=== PATIENT | male | born 1955 | race Caucasian/White ===

== ENCOUNTER 2019-02-21 17:42 | Inpatient (IN) | payer MEDICARE, MEDICAID ==
--- NOTE | 2019-02-21 19:38 | ED Physician Chart ---
ED Chief Complaint/HPI - Patient Information Date Seen:: 02/21/19 Time Seen:: 19:50 Chief Complaint:: back pain History of Present Illness:: Been bedridden for last 4 months. He is apparently been more weak than usual. Patient also complaint back pain Allergies:: Allergies Allergy/AdvReac Type Severity Reaction Status Date / Time No Known Allergies Allergy Verified 02/21/19 17:59 Vitals:: Vital Signs - 8 hr 02/21/19 18:00 Temp 98.6 F HR 92 RR 18 BP 160/97 O2 Sat % 96 Historian:: Patient Review:: Transfer documents Reviewed ED Review of Systems - Review of Systems General/Constitutional: No fever, No chills, Weakness Skin: No skin lesions Head: No headache Eyes: No loss of vision ENT: No earache Neck: No neck pain Cardio Vascular: No chest pain, No palpitations Pulmonary: No SOB GI: No nausea, No vomiting, No diarrhea G/U: No dysuria Musculoskeletal: Back pain Endocrine: No polyuria Psychiatric: Prior psych history Hematopoietic: No bruising Allergic/Immuno: No urticaria Neurological: No syncope ED Past Medical History - Past Medical History Past Medical History: HTN, DM, Dyslipidemia, Other (schizophrenia) Family History: Diabetes Melitus, HTN Social History: Non Smoker, No Alcohol Surgical History: other (colonoscopy) Psychiatricy History: Depression, Schizophrenia Family Medical History - Family Member Father History Unknown: Yes ED Physical Exam - Physical Examination General/Constitutional: Well-developed, well-nourished, Alert, No distress Head: Atraumatic Eyes: Lids, conjuctiva normal Skin: Nl inspection, No rash ENMT: External ears, nose nl, TM canals nl, Nasal exam nl Other ENMT comments:: full upper and lower dentures Neck: No nuchal rigidity Respiratory: Nl effort/Exclusion, Clear to Auscultation, No Wheeze/Rhonchi/Rales Cardio Vascular: RRR, No murmur, gallop, rubs, NL S1 S2 GI: No tenderness/rebounding/guarding, No organomegaly : No CVA tenderness Extremities: No tenderness or effusion Neuro/Psych: Alert/oriented, No focal deficits Misc: No paraspinal tenderness ED Labs/Radiology/EKG Results - Lab Results Results: Laboratory Results WBC 8.3 Th/cmm (4.8-10.8) 04/02/19 20: RBC 4.11 Mil/cmm (4.30-5.70) L 02/21/19 20:23 Hgb 13.0 gm/dL (12-16) 02/21/19 20:23 Hct 39.3 % (41.0-60) L 02/21/19 20:23 MCV 95.6 fl (80-99) 02/21/19 20: MCH 31.6 pg (26.0-30.0) H 02/21/19: MCHC Differential 33.1 pg (28.0-36.0) 02/21/19: RDW 13.5 % (11.5-20.0) 02/21/19: Plt Count 300 Th/cmm (150-400) 02/21/19 20: MPV 5.9 fl 02/21/19 20: Neutrophils % 63.6 % (40.0-80.0) 02/21/19: Lymphocytes % 24.2 % (20.0-50.0) 02/21/19: Monocytes % 6.6 % (2.0-10.0) 02/21/19: Eosinophils % 5.1 % (0.0-5.0) H 02/21/19: Basophils % 0.5 % (0.0-2.0) 02/21/19: Laboratory Results WBC 8.3 Th/cmm (4.8-10.8) 02/21/19 20: RBC 4.11 Mil/cmm (4.30-5.70) L 02/21/19 20:23 Hgb 13.0 gm/dL (12-16) 02/21/19 20: Hct 39.3 % (41.0-60) L 02/21/19 20: MCV 95.6 fl (80-99) 02/21/19 20: MCH 31.6 pg (26.0-30.0) H 02/21/19: MCHC Differential 33.1 pg (28.0-36.0) 02/21/19: RDW 13.5 % (11.5-20.0) 04/02/19 20:23 Plt Count 300 Th/cmm (150-400) 02/21/19 20:23 MPV 5.9 fl 02/21/19 20:23 Neutrophils % 63.6 % (40.0-80.0) 02/21/19 20:23 Lymphocytes % 24.2 % (20.0-50.0) 02/21/19 20:23 Monocytes % 6.6 % (2.0-10.0) 02/21/19 20:23 Eosinophils % 5.1 % (0.0-5.0) H 02/21/19 20:23 Basophils % 0.5 % (0.0-2.0) 02/21/19 20:23 Sodium 139 mEq/L (136-145) 02/21/19 20:23 Potassium 3.1 mEq/L (3.5-5.1) L 02/21/19 20:23 Chloride 98 mEq/L (98-107) 02/21/19 20:23 Carbon Dioxide 28.7 mEq/L (21.0-31.0) 02/21/19 20:23 Anion Gap 15.4 (7.0-16.0) 02/21/19 20:23 BUN 20 mg/dL (7-25) 02/21/19 20:23 Creatinine 1.0 mg/dL (0.7-1.3) 02/21/19 20:23 Est GFR ( Amer) > 60.0 ml/min (>90) 02/21/19 20:23 Est GFR (Non-Af Amer) > 60.0 ml/min 02/21/19 20:23 BUN/Creatinine Ratio 20.0 02/21/19 20:23 Glucose 127 mg/dL (70-105) H 02/21/19 20:23 Calcium 10.8 mg/dL (8.6-10.3) H 02/21/19 20:23 ED Septic Shock - . Is Septic Shock (SBP<90, OR Lactate>4 mmol\L) present?: No - <6hrs of presentation: Vital Signs: Vital Signs - 8 hr 02/21/19 18:00 Temp 98.6 F HR 92 RR 18 BP 160/97 O2 Sat % 96 ED Reassessment (Disposition) - Reassessment Reassessment Condition:: Unchanged - Diagnosis Diagnosis:: Hypokalemia; acute exacerbation of back pain - Patient Disposition Admitted to:: Med/Surg Spoke to:: Shlomo Emanuel Admitting Medical Physician:: Shlomo Emanuel Condition at Disposition:: Stable, Unchanged
[2019-02-21 20:37] LABS: % BASOPHILS 0.5 % (0.0-2.0); % EOSINOPHILS 5.1 % (0.0-5.0); % LYMPHOCYTES 24.2 % (20.0-50.0); % MONOCYTES 6.6 % (2.0-10.0); % NEUTROPHILS 63.6 % (40.0-80.0); EOSINOPHILE ABSOLUTE 0.4 Th/cmm (0.1-0.4); HEMATOCRIT 39.3 % (41.0-60); MEAN CELL VOLUME 95.6 fl (80-99); MEAN CORPUSCULAR HEMOGLOBIN 31.6 pg (26.0-30.0); MEAN CORPUSCULAR HGB CONC 33.1 pg (28.0-36.0); MEAN PLATELET VOLUME 5.9 fl; MONOCYTE ABSOLUTE 0.5 Th/cmm (0.3-1.0); NEUTROPHILE ABSOLUTE 5.4 Th/cmm (1.8-8.0); PLATELET COUNT 300 Th/cmm (150-400); RED BLOOD COUNT 4.11 Mil/cmm (4.30-5.70); RED CELL DISTRIBUTION WIDTH 13.5 % (11.5-20.0); WHITE BLOOD COUNT 8.3 Th/cmm (4.8-10.8)
[2019-02-21 20:54] LABS: ANION GAP 15.4 (7.0-16.0); BUN - UREA NITROGEN 20 mg/dL (7-25); CALCIUM SERUM 10.8 mg/dL (8.6-10.3); CARBON DIOXIDE 28.7 mEq/L (21.0-31.0); CHLORIDE 98 mEq/L (98-107); GFR AFRICAN-AMERICAN > 60.0 ml/min (>90); GFR NON AFRICAN-AMERICAN > 60.0 ml/min; GLUCOSE 127 mg/dL (70-105); POTASSIUM SERUM 3.1 mEq/L (3.5-5.1); SODIUM SERUM 139 mEq/L (136-145)
[2019-02-21] MEDS ORDERED: Potassium Chloride 20 mEq ER Tab PO ONE ×2 (21:49→22:04)
[2019-02-21] MEDS ORDERED: INSULIN LISPRO SLIDING SCALE 100 UNITS/ML UNIT SUBQ ONE (23:30)
[2019-02-22 00:36] VITALS: BP 144/102
[2019-02-22] MEDS ORDERED: INSULIN HUMAN REGULAR 100 UNITS/ML UNIT SUBQ ONE (06:00)
[2019-02-22] MEDS ORDERED: INSULIN LISPRO SLIDING SCALE 100 UNITS/ML UNIT SUBQ SCH (06:30)
[2019-02-22] MEDS: INSULIN LISPRO SLIDING SCALE 100 UNITS/ML UNIT SUBQ SCH ×4 (08:24→22:40)
--- NOTE | 2019-02-22 08:41 | Diagnostic Imaging Report ---
Exam: Chest x-ray HISTORY: Cough Findings: Frontal examination of chest reviewed, no prior studies available comparison. The study demonstrates elevation of right hemidiaphragm with distended bowel. The heart is prominent. There is mild congestion. No acute pulmonic infiltrates or effusions appreciated. Bony thorax is intact. Degenerative changes of shoulder joints bilaterally appreciated. IMPRESSION: Cardiomegaly, mild congestion. Elevated right hemidiaphragm. Clinical correlation recommended.
[2019-02-22] MEDS: Pantoprazole 40 mg EC Tab PO SCH (10:48)
[2019-02-22] MEDS ORDERED: buPROPion XL 150 mg T 24 H PO ONE (11:00)
[2019-02-22 11:24] LABS: URINE SOURCE RANDOM
[2019-02-22 11:28] LABS: URINE BILIRUBIN NEGATIVE (NEGATIVE); URINE BLOOD NEGATIVE (NEGATIVE); URINE GLUCOSE (UA) NEGATIVE (NEGATIVE); URINE KETONE NEGATIVE (NEGATIVE); URINE LEUKOCYTE ESTERASE NEGATIVE (NEGATIVE); URINE NITRATE NEGATIVE (NEGATIVE); URINE PH 7.5 (4.6 - 8.0); URINE PROTEIN NEGATIVE (NEGATIVE)
[2019-02-22 11:30] LABS: % BASOPHILS 0.3 % (0.0-2.0); % EOSINOPHILS 3.5 % (0.0-5.0); % LYMPHOCYTES 19.5 % (20.0-50.0); % MONOCYTES 6.7 % (2.0-10.0); EOSINOPHILE ABSOLUTE 0.3 Th/cmm (0.1-0.4); HEMATOCRIT 38.8 % (41.0-60); HEMOGLOBIN 12.6 gm/dL (12-16); LYMPHOCYTE ABSOLUTE 1.4 Th/cmm (1.5-3.0); MEAN CELL VOLUME 94.6 fl (80-99); MEAN CORPUSCULAR HEMOGLOBIN 30.8 pg (26.0-30.0); MEAN CORPUSCULAR HGB CONC 32.5 pg (28.0-36.0); MEAN PLATELET VOLUME 6.1 fl; MONOCYTE ABSOLUTE 0.5 Th/cmm (0.3-1.0); NEUTROPHILE ABSOLUTE 5.1 Th/cmm (1.8-8.0); PLATELET COUNT 298 Th/cmm (150-400); RED CELL DISTRIBUTION WIDTH 13.3 % (11.5-20.0); WHITE BLOOD COUNT 7.3 Th/cmm (4.8-10.8)
[2019-02-22 11:36] LABS: URINE CLARITY CLEAR (CLEAR); URINE COLOR YELLOW
[2019-02-22 11:37] LABS: URINE BACTERIA OCCASIONAL /hpf (NONE SEEN); URINE EPITHELIAL CELLS NONE SEEN /lpf (FEW); URINE MICROSCOPIC INDICATED? YES; URINE RBC NONE SEEN /hpf (0-5); URINE WBC 0-2 /hpf (0-5)
--- NOTE | 2019-02-22 11:48 | History & Physical ---
ADMIT DATE: 02/21/2019 PATIENT IDENTIFICATION: A 63-year-old male. CHIEF COMPLAINT: "Doctor, I cannot walk anymore. I feel generalized weak. I need help." HISTORY OF PRESENT ILLNESS: A 63-year-old male who resides at longterm, has history of diabetes mellitus, hypertension, psychotic distress, history of spinal stenosis, DJD, hypothyroidism, resides at [facility], brought in to the Emergency Room yesterday because the patient was stating that he does not feel good and he feels weak more than usual. The patient was sent to Emergency Room. The patient was evaluated by Emergency Room MD. Upon evaluation, it was noted that the patient had hypokalemia with potassium of 3.1, calcium was reported 10.8 and noted to have significant neurological finding of lower extremity weakness along with upper extremity spasticity as well. The patient was advised to be admitted for further management. PAST MEDICAL HISTORY: Remarkable for, 1. Diabetes. 2. Hypertension. 3. Hyperlipidemia. 4. Hypothyroidism. 5. DJD. 6. Spinal stenosis. 7. Chronic pain. 8. Psychotic disorder. MEDICATIONS AT HOME: Has been reviewed and reconciled appropriately. ALLERGIES: The patient is not allergic to medication. SOCIAL HISTORY: The patient resides in assisted living facility. No history of smoking cigarette, alcohol, or drug use. FAMILY MEDICAL HISTORY: Remarkable for diabetes. REVIEW OF SYSTEMS: The patient complained of generalized weakness with decreased appetite. No fever, no chills, no chest pain, no shortness of breath, no palpitation, no dizziness, no nausea, no vomiting, no diarrhea, no dysuria, no hematuria, no hematochezia or melena. No seizure or syncopal episode. PHYSICAL EXAMINATION: GENERAL: Alert, awake, oriented, lying in the bed. VITAL SIGNS: Temperature 97.6, pulse is 72, respiratory rate is 18, blood pressure 144/100. HEENT: Normocephalic, atraumatic. Extraocular muscles are intact. Tongue was pink and coated. Poor dentition noted. No oral lesion noted. No exudate. NECK: Supple. No JVD. No hepatojugular reflex. No lymphadenopathy, thyromegaly, or carotid bruit. HEART: Both heart sounds are regular. No S3, no S4. CHEST AND LUNGS: Equal in expansion, no expiratory wheezing. ABDOMEN: Soft. No guarding, no rigidity. Liver and spleen are not palpable. No palpable mass. EXTREMITIES: No edema, no cyanosis, no calf tenderness noted. Peripheral pulses +1. NEUROLOGIC: Alert, awake and oriented to time, place, person; 2 through 12 cranial nerves are intact. Power in upper extremity is 4/5 with spasticity also noted, some wasting on the muscles on the hand noted. Lower extremity power is reported 3 or 2/5 to proximal and distal muscles, significant spasticity and foot drop also noted. Unable to bend his knee as well as ankle. AVAILABLE DIAGNOSTIC DATA: Has been reviewed. CLINICAL IMPRESSION: A 63-year-old male with history of diabetes, hypertension, lumbar spinal stenosis, chronic pain syndrome, presented to Emergency Room for, 1. Generalized weakness, not feeling well, noted to have hypokalemia, mild hypercalcemia, has a neurological finding which is new from before since I know him. He does have lower extremity weakness, but this looks worse. The patient needs further evaluation. 2. Diabetes. 3. Hypertension. 4. Chronic pain syndrome. 5. Psychotic disorder. 6. Degenerative joint disease. 7. Debility. 8. Decline in self-care and mobility. PLAN: 1. Admit this patient to Med/Surg floor. 2. Replace potassium. 3. MRI of lumbosacral spine. 4. Neurology consultation. 5. Repeat the labs in order to further workup for hypercalcemia. 6. Follow appropriate home medicine reconciliation. 7. Diabetes management. 8. Follow lab. 9. Follow consult recommendation. 10. Care plan reviewed and discussed with staff. [facility]# [id number]
[2019-02-22 11:49] LABS: ALB/GLOB RATIO 1.7 (1.0-1.8); ALKALINE PHOSPHATASE 41 U/L (34-104); ANION GAP 12.3 (7.0-16.0); BILIRUBIN,TOTAL 0.4 mg/dL (0.3-1.0); BUN - UREA NITROGEN 19 mg/dL (7-25); CALCIUM SERUM 11.2 mg/dL (8.6-10.3); CARBON DIOXIDE 30.2 mEq/L (21.0-31.0); CHLORIDE 99 mEq/L (98-107); GFR AFRICAN-AMERICAN > 60.0 ml/min (>90); GFR NON AFRICAN-AMERICAN > 60.0 ml/min; GLUCOSE 155 mg/dL (70-105); POTASSIUM SERUM 3.5 mEq/L (3.5-5.1); SGOT 15 U/L (13-39); SGPT/ALT 17 U/L (7-52); SODIUM SERUM 138 mEq/L (136-145); TOTAL PROTEIN,SERUM 6.4 gm/dL (6.0-8.3)
[2019-02-22] MEDS ORDERED: Atorvastatin Calcium 10 MG TAB PO SCH (21:00)
[2019-02-22] MEDS ORDERED: Non-Formulary Item 1 EA (Lurasidone Hcl [Latuda] 40 MG) PO SCH (21:00)
[2019-02-22] MEDS: Atorvastatin Calcium 10 MG TAB PO SCH (22:27)
[2019-02-23] MEDS: Levothyroxine 0.025 Mg Tab PO SCH (06:49)
[2019-02-23 07:00] LABS: % BASOPHILS 0.5 % (0.0-2.0); % EOSINOPHILS 4.8 % (0.0-5.0); % LYMPHOCYTES 30.9 % (20.0-50.0); % MONOCYTES 8.3 % (2.0-10.0); % NEUTROPHILS 55.5 % (40.0-80.0); EOSINOPHILE ABSOLUTE 0.4 Th/cmm (0.1-0.4); HEMATOCRIT 35.4 % (41.0-60); HEMOGLOBIN 12.1 gm/dL (12-16); LYMPHOCYTE ABSOLUTE 2.4 Th/cmm (1.5-3.0); MEAN CELL VOLUME 92.9 fl (80-99); MEAN CORPUSCULAR HEMOGLOBIN 31.8 pg (26.0-30.0); MEAN CORPUSCULAR HGB CONC 34.3 pg (28.0-36.0); MEAN PLATELET VOLUME 6.1 fl; MONOCYTE ABSOLUTE 0.6 Th/cmm (0.3-1.0); NEUTROPHILE ABSOLUTE 4.3 Th/cmm (1.8-8.0); PLATELET COUNT 278 Th/cmm (150-400); RED BLOOD COUNT 3.81 Mil/cmm (4.30-5.70); RED CELL DISTRIBUTION WIDTH 13.1 % (11.5-20.0); WHITE BLOOD COUNT 7.7 Th/cmm (4.8-10.8)
[2019-02-23 07:11] LABS: ALB/GLOB RATIO 1.8 (1.0-1.8); ALBUMIN 3.8 gm/dL (4.2-5.5); ALKALINE PHOSPHATASE 36 U/L (34-104); ANION GAP 9.4 (7.0-16.0); BILIRUBIN,TOTAL 0.5 mg/dL (0.3-1.0); BUN - UREA NITROGEN 22 mg/dL (7-25); CALCIUM SERUM 11.3 mg/dL (8.6-10.3); CARBON DIOXIDE 30.8 mEq/L (21.0-31.0); CHLORIDE 101 mEq/L (98-107); GFR AFRICAN-AMERICAN > 60.0 ml/min (>90); GFR NON AFRICAN-AMERICAN > 60.0 ml/min; GLUCOSE 124 mg/dL (70-105); POTASSIUM SERUM 3.2 mEq/L (3.5-5.1); SGOT 13 U/L (13-39); SGPT/ALT 16 U/L (7-52); SODIUM SERUM 138 mEq/L (136-145); TOTAL PROTEIN,SERUM 5.9 gm/dL (6.0-8.3)
[2019-02-23] MEDS: INSULIN LISPRO SLIDING SCALE 100 UNITS/ML UNIT SUBQ SCH ×4 (07:20→21:22)
[2019-02-23] MEDS: Pantoprazole 40 mg EC Tab PO SCH (09:16)
[2019-02-23] MEDS: buPROPion XL 150 mg T 24 H PO SCH (09:20)
[2019-02-23] MEDS ORDERED: Potassium Chloride 20 mEq ER Tab PO ONE (09:32)
[2019-02-23] MEDS ORDERED: Nystatin Cream 100,000 u/gm Cream 15 gm TP SCH (15:00)
[2019-02-23] MEDS: Nystatin Cream 100,000 u/gm Cream 15 gm TP SCH (16:52)
[2019-02-23] MEDS: Atorvastatin Calcium 10 MG TAB PO SCH (21:14)
--- NOTE | 2019-02-23 23:14 | Consultation ---
DATE OF CONSULTATION: 02/23/2019 NEUROLOGY CONSULTATION HISTORY OF PRESENT ILLNESS: A 63-year-old male in the detention. The patient with difficulty with walking. The patient with previous leg weakness. Has been walking for some time. The patient feels also generally weak, exhausted. PAST MEDICAL HISTORY: 1. Lumbar spinal stenosis. 2. The patient with diabetes. 3. Hypertension. 4. Psychosis. 5. Hypothyroidism. 6. Chronic pain syndrome. MEDICATIONS: Per reconciliation. ALLERGIES: None known. SOCIAL HISTORY: In a facility. REVIEW OF SYSTEMS: As above, otherwise 12-point negative. PHYSICAL EXAMINATION: VITAL SIGNS: Temperature 98.2, blood pressure 140/89, and pulse is 76. NECK: Supple, no bruits. HEART: Sounds S1, S2. LUNGS: Clear. NEUROLOGIC: The patient is awake. His speech is very dysarthric and forced. I do not know whether he had previous stroke or not. The patient was able to give me his name, his age. He did not know the date. He knew the month. CRANIAL: Pupils react to light. Full eye movement. MOTOR: Upper extremity increased tone. There is wasting of the hand muscles. Lower extremity strength is reduced, has increased tone. Again, the strength is about probably 3 or 3+. Reflexes are about 1+ to 2 upper extremities, difficulty doing the knees, more close to stiffness. Weakness of the foot bilaterally. The patient's Babinski bilaterally. IMPRESSION: 1. Gait difficulty. Clinically, the patient has myelopathy. We will get an MRI cervical spine. Other etiology needs to be ruled out. The patient should follow up with Neurology as outpatient. 2. The patient with history of lumbar stenosis, though that would not account for many of the symptoms. 3. The patient with dysarthria. I do not know whether this has been there for a long time, but rule out underlying cerebrovascular accident, neurodegenerative disease. 4. The patient's workup here shows a mild hypercalcemia. 5. Diabetes with some neuropathy. 6. Hypothyroidism. 7. Arthritis. PLAN: MRI cervical spine, lab studies. Further workup depending on the progress. JOB# [id number]
--- NOTE | 2019-02-24 00:01 | Progress Notes ---
DATE: IDENTIFICATION: A 63-year-old male. SUBJECTIVE: The patient seen and examined. The patient is lying in the bed. The patient is seen by neurologist. Neurology input was greatly appreciated. The patient has no new complaint. The patient is scheduled to have MRI of C-spine associated with a CT scan of the head. The patient continues to feel weak though. PHYSICAL EXAMINATION: VITAL SIGNS: Temperature 98, pulse is 70, respiratory rate 18, blood pressure 168/100. HEENT: Poor dentition. NECK: Supple, no JVD. HEART: Regular. CHEST: Lung clear. ABDOMEN: Soft. EXTREMITIES: No edema. NEUROLOGIC: Unremarkable for significantly remarkable spasticity of both lower extremities and some foot drop also noted. Wasting of the small muscle also noted. AVAILABLE DIAGNOSTIC DATA: Potassium of 3.2. MRI remarkable for diffuse DJD with partial compression or anteversion involving the body of L1 noted. CLINICAL IMPRESSION: 1. Bilateral lower extremity weakness associated with worsening symptoms of generalized weakness. Workup are currently in progress. Neurology input appreciated. 2. Hypokalemia. 3. Hypertension. 4. Diabetes mellitus. 5. Degenerative joint disease. 6. High risk for fall. PLAN: Recommended at this time, the patient is to have an MRI and CT head as suggested by neurologist. Replace potassium. Continue other medication as prescribed. Follow lab and follow security sales consultant's recommendations. Adjust antihypertensive medications as well. Care plan reviewed and discussed with staff. JOB# [id number]
[2019-02-24] MEDS: Levothyroxine 0.025 Mg Tab PO SCH (06:28)
[2019-02-24] MEDS: INSULIN LISPRO SLIDING SCALE 100 UNITS/ML UNIT SUBQ SCH ×4 (06:30→21:32)
--- NOTE | 2019-02-24 07:58 | Diagnostic Imaging Report ---
CT scan of the brain without intravenous contrast HISTORY: Stroke, CVA Total DLP equals 913 CTDI equals 46.4 Axial sections were obtained from the base of the skull to the vertex. There is prominence/enlargement of the ventricular system size. Associated enlargement of cerebral sulci and subarachnoid cisterns. Findings are consistent with changes of generalized cerebral atrophy. No acute parenchymal abnormalities. No acute cerebral hemorrhage. Hypodensity is seen within the supratentorial white matter regions without mass effect. The findings may be associated with chronic small vessel ischemic disease. No extra-axial masses or abnormal fluid collections. IMPRESSION: 1. No acute abnormalities 2. Cerebral atrophy 3. Supratentorial white matter changes that may reflect chronic small vessel ischemic disease
[2019-02-24] MEDS: Pantoprazole 40 mg EC Tab PO SCH (09:44)
[2019-02-24] MEDS: buPROPion XL 150 mg T 24 H PO SCH (09:45)
[2019-02-24] MEDS: Nystatin Cream 100,000 u/gm Cream 15 gm TP SCH ×2 (09:46→17:52)
[2019-02-24] MEDS: Sodium Chloride 0.9% 1,000 ML IV SCH ×2 (10:40→19:48)
[2019-02-24] MEDS: Atorvastatin Calcium 10 MG TAB PO SCH (21:30)
--- NOTE | 2019-02-25 05:03 | Progress Notes ---
DATE: 02/24/2019 SUBJECTIVE: The patient is in bed. The patient is awake, alert. He will follow instructions. The patient has not gotten up. Weakness in the legs as before. Gait difficulty. OBJECTIVE: VITAL SIGNS: Temperature 98.2, blood pressure 130/70, pulse is 74. NECK: Supple. No neck bruits. CARDIOVASCULAR: Normal heart sounds. RESPIRATORY: Lungs clear. NEUROLOGIC: The patient is awake. The patient answers questions. The patient will lift both arms up. There is weakness in the legs. The patient's reflexes, upper extremity about 1-2+, knees difficult to get, lot of stiffness. Weakness in foot bilateral, bilateral Babinski. ASSESSMENT AND PLAN: 1. Gait difficulty, myelopathy. Work up with MRI cervical spine. 2. The patient with history of lumbar stenosis. 3. Dysarthria. The patient needs full Neurology rule out with underlying neurodegenerative disease. 4. Hypercalcemia. 5. Diabetes with neuropathy 6. Hypothyroidism. 7. Arthritis. PLAN: MRI cervical spine, lab studies. Physical therapy, ambulation. The patient is at high risk of falls. JOB# [id number]
[2019-02-25 05:25] LABS: % BASOPHILS 0.8 % (0.0-2.0); % EOSINOPHILS 5.3 % (0.0-5.0); % LYMPHOCYTES 31.6 % (20.0-50.0); % MONOCYTES 7.6 % (2.0-10.0); % NEUTROPHILS 54.7 % (40.0-80.0); BASOPHILE ABSOLUTE 0.1 Th/cumm (0-0.2); EOSINOPHILE ABSOLUTE 0.5 Th/cmm (0.1-0.4); HEMATOCRIT 33.4 % (41.0-60); HEMOGLOBIN 11.2 gm/dL (12-16); LYMPHOCYTE ABSOLUTE 2.7 Th/cmm (1.5-3.0); MEAN CELL VOLUME 94.2 fl (80-99); MEAN CORPUSCULAR HEMOGLOBIN 31.6 pg (26.0-30.0); MEAN CORPUSCULAR HGB CONC 33.5 pg (28.0-36.0); MEAN PLATELET VOLUME 6.1 fl; MONOCYTE ABSOLUTE 0.7 Th/cmm (0.3-1.0); NEUTROPHILE ABSOLUTE 4.6 Th/cmm (1.8-8.0); PLATELET COUNT 243 Th/cmm (150-400); RED BLOOD COUNT 3.54 Mil/cmm (4.30-5.70); RED CELL DISTRIBUTION WIDTH 12.9 % (11.5-20.0); WHITE BLOOD COUNT 8.6 Th/cmm (4.8-10.8)
[2019-02-25 05:38] LABS: ALB/GLOB RATIO 1.8 (1.0-1.8); ALBUMIN 3.4 gm/dL (4.2-5.5); ALKALINE PHOSPHATASE 37 U/L (34-104); ANION GAP 11.7 (7.0-16.0); BILIRUBIN,TOTAL 0.4 mg/dL (0.3-1.0); BUN - UREA NITROGEN 30 mg/dL (7-25); CALCIUM SERUM 10.4 mg/dL (8.6-10.3); CARBON DIOXIDE 24.9 mEq/L (21.0-31.0); CHLORIDE 102 mEq/L (98-107); CREATININE - SERUM 1.1 mg/dL (0.7-1.3); GFR AFRICAN-AMERICAN > 60.0 ml/min (>90); GFR NON AFRICAN-AMERICAN > 60.0 ml/min; GLUCOSE 92 mg/dL (70-105); POTASSIUM SERUM 3.6 mEq/L (3.5-5.1); SGOT 10 U/L (13-39); SGPT/ALT 14 U/L (7-52); SODIUM SERUM 135 mEq/L (136-145); TOTAL PROTEIN,SERUM 5.3 gm/dL (6.0-8.3)
[2019-02-25] MEDS: Sodium Chloride 0.9% 1,000 ML IV SCH ×2 (06:14→13:43)
[2019-02-25] MEDS: INSULIN LISPRO SLIDING SCALE 100 UNITS/ML UNIT SUBQ SCH ×3 (06:43→17:06)
--- NOTE | 2019-02-25 06:47 | Progress Notes ---
DATE: 02/24/2019 SUBJECTIVE: The patient is seen and examined. The patient is seen by neurologist. MRI of C-spine was canceled. Head CT remarkable for chronic ischemic changes. The patient has been seen by neurologist. Workup has been ordered. The patient currently denies any increasing chest pain, shortness of breath, palpitation, dizziness, nausea, and vomiting. PHYSICAL EXAMINATION: VITAL SIGNS: Temperature 98, pulse is 70, respiratory rate 18, blood pressure 150/90. HEENT: No facial asymmetry. NECK: Supple, no JVD. HEART: Regular. CHEST: Lung equal in expansion, no expiratory wheezing. ABDOMEN: Soft. No guarding or rigidity. Liver, spleen palpable. No palpable mass. EXTREMITIES: No edema, no cyanosis. NEUROLOGIC: Alert, awake, follows commands. Decreased power on lower extremities noted. AVAILABLE DIAGNOSTIC DATA: Remarkable for calcium of 11.3 on 02/23/2019. CLINICAL IMPRESSION: 1. Hypercalcemia. 2. Confusion, improving. 3. Lumbar spinal stenosis. 4. Diabetes. 5. Hypertension. PLAN: In the view of hypercalcemia, we will check parathyroid hormone assay. We will start on IV fluid and monitor the labs. We will also follow consult recommendation provide diabetes management and general nursing care. Fall precautions will be continued. Start physical therapy and occupational therapy. Care plan has been reviewed and discussed with staff. JOB# [id number]
[2019-02-25] MEDS: Levothyroxine 0.025 Mg Tab PO SCH (08:29)
[2019-02-25] MEDS: Pantoprazole 40 mg EC Tab PO SCH (08:30)
[2019-02-25] MEDS: buPROPion XL 150 mg T 24 H PO SCH (08:57)
[2019-02-25] MEDS: Nystatin Cream 100,000 u/gm Cream 15 gm TP SCH ×2 (09:00→18:07)
--- NOTE | 2019-02-25 23:06 | Discharge Summary ---
DATE OF DISCHARGE: 02/25/2019 DATE OF DISCHARGE TO LOWER LEVEL CARE: 02/25/2019. PRINCIPAL DIAGNOSES: 1. Confusion most likely secondary to metabolic encephalopathy caused by hypercalcemia. 2. Hypercalcemia. Workup under progress. 3. Bilateral lower extremity weakness secondary to lumbar spinal stenosis. 4. Diffuse degenerative joint disease of spine with partial compression involving L1 vertebra. 5. Diabetes mellitus. 6. Hypertension. 7. Degenerative joint disease. 8. Dysarthria 9. Decline in self-care and mobility. BRIEF STATEMENT FOR THE REASON FOR ADMISSION: A 63-year-old male transferred to the Emergency Room for evaluation of confusion and generalized weakness. The patient was noted to have hypercalcemia and significant neurologic finding. The patient was advised to be admitted. Please refer to my medical H and P for further information. HOSPITAL COURSE: The patient was admitted to med/surg floor where the patient underwent workup. Neurology consultation was also requested. CT scan of the head was unremarkable. IV fluid was given as well. The patient was seen by neurologist and appropriate workup was also ordered. MRI of the lumbosacral spine did reveal the patient had a diffuse degenerative process involving a lumbosacral spine with there is also remarkable partial compression wedging involving the body of L1. The patient was seen. It was recommended the patient should have MRI of C-spine as well, but limited resources limited the studies, and it was decided it would be done as an outpatient. Hypercalcemia was treated with fluids and the patient will be monitored as an outpatient. The patient will require physical therapy and occupational therapy, so the patient is transferred to skilled nursing. The patient will be followed by myself and my nurse practitioner. At the time of discharge, all of his medications were reconciled. JOB# [id number]
--- NOTE | 2019-02-26 04:13 | Progress Notes ---
DATE: 02/25/2019 PATIENT'S ID: A 63-year-old male. SUBJECTIVE: The patient seen and examined, no new complaint. MRI of the C-spine is not done. PHYSICAL EXAMINATION: VITAL SIGNS: Temperature 97.9, pulse 61, respiratory rate 19, blood pressure 120/80. HEENT: No facial asymmetry. Absent upper and lower dentition. NECK: Supple, no JVD. HEART: Regular. CHEST AND LUNG: Equal in expansion, no expiratory wheezing. ABDOMEN: Soft. EXTREMITIES: No edema. CLINICAL IMPRESSION: 1. Confusion, improving. 2. Hypercalcemia. 3. Lumbar spinal stenosis. 4. Diabetes. 5. Hypertension. 6. Degenerative joint disease. PLAN: 1. Continue current medication as prescribed. 2. Discharged to lower level of care. 3. Outpatient workup. 4. PT, OT. 5. Appropriate home medicine reconciliation. 6. Discharge summary is completed. JOB# [id number]
[2019-02-28 04:10] LABS: FOLIC ACID 17.7 ng/mL (>3.0)
== END 2019-02-25 19:21 | DRG 551 ==
LOC: ER 17:42 → MSI 22:04
PROVIDERS: ADMIT Internal Medicine; ATTEND Internal Medicine
DX: M48.061 Spinal stenosis, lumbar region without neurogenic claudication (principal); G93.41 Metabolic encephalopathy; G99.2 Myelopathy in diseases classified elsewhere; G82.20 Paraplegia, unspecified; E83.52 Hypercalcemia; E87.6 Hypokalemia; I10 Essential (primary) hypertension; M19.90 Unspecified osteoarthritis, unspecified site; E78.5 Hyperlipidemia, unspecified; E03.9 Hypothyroidism, unspecified; G89.4 Chronic pain syndrome; E11.40 Type 2 diabetes mellitus with diabetic neuropathy, unspecified; R47.1 Dysarthria and anarthria; Z91.81 History of falling; Z74.01 Bed confinement status
CPT/HCPCS: 36415-UA; 70450-TC; 71045-TC; 80048-TC; 80053-TC; 81001-TC; 82085-90; 82140-TC; 82550-TC; 82607-90; 82746-90; 82948-90; 83970-90; 84425-90; 85025-TC; 86141-TC; 93005; J7030; Z7610; Z7610-TC